=== PATIENT | female | born 1955 | race Caucasian/White ===

== ENCOUNTER → 2018-06-13 | Outpatient (CLI) | payer OTHER | LOC: M WUC 12:26 | DX: J30.1 Allergic rhinitis due to pollen (principal); J30.81 Allergic rhinitis due to animal (cat) (dog) hair and dander; J32.0 Chronic maxillary sinusitis; R06.02 Shortness of breath; R05 Cough; Z87.891 Personal history of nicotine dependence | CPT/HCPCS: 71046 ==